=== PATIENT | female | born 1965 | race African-American/Black ===

== ENCOUNTER 2016-12-25 10:38 | Outpatient (CLI) | payer OTHER ==
--- NOTE | 2016-12-25 15:14 | Mammography Report ---
BILATERAL DIGITAL SCREENING MAMMOGRAM with CAD: 12/25/16 10:38:00 CLINICAL: Routine screening. COMPARISON:None available. FINDINGS: The breasts are heterogeneously dense, which may obscure small masses. No mass, architectural distortion or suspicious calcifications. IMPRESSION: No mammographic evidence of malignancy. BI-RADS CATEGORY: 1 - - Negative RECOMMENDATION: Routine mammographic screening in one year. COMMENT: Patient follow-up letters are generated by our [employer] application.
== END 2016-12-25 10:39 | disposition home or self-care (01) ==
LOC: SPVWC 10:38
PROVIDERS: ATTEND Family Medicine
DX: Z12.31 Encounter for screening mammogram for malignant neoplasm of breast (principal)
CPT/HCPCS: 77067; G0202

== ENCOUNTER 2017-08-13 10:24 | Outpatient (CLI) | payer OTHER ==
--- NOTE | 2017-08-13 12:54 | Ultrasound Report ---
ULTRASOUND PELVIC COMPLETE ULTRASOUND TRANSVAGINAL HISTORY: Postmenopausal bleeding. COMPARISON: None. TECHNIQUE: Transabdominal and transvaginal ultrasound with color doppler interrogation. FINDINGS: Uterus: Anteverted. 9.8 x 3.0 x 4.9 cm. No uterine mass is identified. There are 2 nabothian cysts in the cervix measuring 10 mm and 6 mm. Endometrium: The endometrium is thickened measuring 13 mm. No discrete mass or fluid collection. Right ovary: Not visualized. Left ovary: Not visualized. No pelvic fluid or mass is identified. Normal color doppler interrogation. IMPRESSION: There is a thickened endometrium measuring 13 mm in this postmenopausal patient. Endometrial neoplasm cannot be excluded. Consider endometrial biopsy.
== END 2017-08-13 10:25 | disposition home or self-care (01) ==
LOC: US 10:24 → SPVWC 10:24 → US 10:25
PROVIDERS: ATTEND Family Medicine
DX: N88.8 Other specified noninflammatory disorders of cervix uteri (principal); R93.8 Abnormal findings on diagnostic imaging of other specified body structures
CPT/HCPCS: 76830; 76856

== ENCOUNTER 2018-03-01 08:48 | Outpatient (CLI) | payer OTHER ==
--- NOTE | 2018-03-01 11:03 | Cat Scan Report ---
CT ABDOMEN PELVIS WITH AND WITHOUT CONTRAST: HISTORY: abdominal pain. COMPARISON: none. TECHNIQUE: Helical CT in 1.25mm intervals before and after IV contrast. Sagittal and coronal reconstructions. FINDINGS: Lung bases: Normal. Liver: Normal. Biliary system: Normal. Pancreas: Normal. Spleen: Normal. Kidneys/ureters/bladder: The kidneys are normal size and position. Bilateral renal stones are identified. There are 2 punctate calyceal stones at the superior pole of the right kidney. A 5 mm calyceal stone is identified at the superior pole of the left kidney. There also appears to be a second punctate calyceal stone in the mid left kidney. A 1 cm simple exophytic cyst is noted in the inferior left kidney. No evidence for renal mass, ureteral stones or hydronephrosis. The bladder is unremarkable. Adrenal glands: Normal. Aorta: Normal. Intestines: Within normal limits given no oral contrast was administered. Appendix: Normal. Pelvic viscera: Normal. Ascites: None. Adenopathy: None. Musculoskeletal: Intact. Minimal lumbar spondylosis. IMPRESSION: Bilateral nephrolithiasis as described. No evidence for ureteral stones or hydronephrosis.
== END 2018-03-01 08:49 | disposition home or self-care (01) ==
LOC: CT 08:48
PROVIDERS: ATTEND Family Medicine
DX: N20.0 Calculus of kidney (principal); M47.896 Other spondylosis, lumbar region
CPT/HCPCS: 74178; Q9967